=== PATIENT | female | born 1945 | race Caucasian/White ===

== ENCOUNTER 2018-11-23 16:14 | Emergency (ER) | payer MEDICARE, MEDICAID ==
[~2018-11-23] VITALS: Ht 152.4 cm; Wt 68.0 kg
[2018-11-23 16:38] VITALS: BP 127/68
[2018-11-23] MEDS ORDERED: LIDOCAINE VISCOUS 2% UD 15 ML UDC ONE (17:11)
[2018-11-23] MEDS ORDERED: MAG HYDROX/AL HYDROX/SIMETH 30 ML UDC ONE (17:11)
[2018-11-23] MEDS: MAG HYDROX/AL HYDROX/SIMETH 30 ML UDC PO ONE (17:18)
[2018-11-23] MEDS: LIDOCAINE VISCOUS 2% UD 15 ML UDC MM ONE (17:18)
== END 2018-11-23 18:21 | disposition home or self-care (01) ==
LOC: ER 16:19
DX: R09.89 Other specified symptoms and signs involving the circulatory and respiratory systems (principal); E03.4 Atrophy of thyroid (acquired); Z60.2 Problems related to living alone
CPT/HCPCS: 70490-TC